=== PATIENT | female | born 1985 | race Two or more races ===

== ENCOUNTER → 2025-05-16 10:37 | Outpatient (CLI) | payer OTHER | END | disposition home or self-care (01) | LOC: PRENATAL 10:37 | PROVIDERS: ATTEND Obstetrics & Gynecology Maternal & Fetal Medicine | DX: O26.849 Uterine size-date discrepancy, unspecified trimester (principal); O36.8130 Decreased fetal movements, third trimester, not applicable or unspecified; O09.519 Supervision of elderly primigravida, unspecified trimester; O99.019 Anemia complicating pregnancy, unspecified trimester; Z3A.27 27 weeks gestation of pregnancy ==